=== PATIENT | female | born 1975 | race Caucasian/White ===

== ENCOUNTER 2017-02-23 14:54 | Emergency (ER) | payer SELFPAY ==
[2017-02-23] MEDS ORDERED: THIAMINE 100 MG/ML 100 MG/ML SOL IV ONE (15:34)
[2017-02-23] MEDS ORDERED: MAGNESIUM SULFATE 1 GM/2 ML SOL IV ONE (15:40)
[2017-02-23] MEDS ORDERED: SODIUM CHLORIDE 0.9% 1000ML 1,000 ML IV SCH (15:45)
[2017-02-23 15:52] LABS: BASOPHILS % (AUTO) 1 % (0-3); EOSINOPHILS % (AUTO) 1 % (0-9); HEMATOCRIT 42 % (35-47); MEAN CORPUSCULAR HGB CONC 36.4 gm/dl (32.0-36.0); MEAN CORPUSCULAR VOLUME 94 fL (81-99); MONOCYTES % (AUTO) 6.8 % (0-12); NEUTROPHILS % (AUTO) 76.3 % (37-80)
[2017-02-23] MEDS ORDERED: FOLIC ACID 1 MG TAB PO ONE (15:52)
[2017-02-23] MEDS ORDERED: MAGNESIUM SULFATE 5 GM/10 ML SOL ONE (15:53)
[2017-02-23] MEDS ORDERED: THIAMINE 100 MG/ML 100 MG/ML SOL ONE (15:53)
[2017-02-23] MEDS ORDERED: FOLIC ACID 1 MG TAB ONE (15:53)
[2017-02-23 16:08] LABS: NORMAL RBCS NORMAL RBCS
[2017-02-23 16:10] LABS: ALBUMIN 3.6 gm/dl (3.4-5.0); ALT 32 IU/L (14-63); CALCIUM 8.3 mg/dl (8.5-10.1); GLOM FILT RATE 72 mL/min (>60); POTASSIUM 3.5 mMol/L (3.5-5.1); SODIUM 135 mMol/L (136-145)
[2017-02-23] MEDS: SODIUM CHLORIDE 0.9% FLUSH 10 ML SOL IV PRN ×2 (16:20→16:35)
[2017-02-23 17:01] VITALS: TEMP 98.9
[2017-02-23] MEDS ORDERED: POTASSIUM CHLORIDE 10 MEQ TER PO ONE (17:07)
[2017-02-23] MEDS ORDERED: POTASSIUM CHLORIDE 10 MEQ TER ONE (17:07)
[2017-02-23 18:22] VITALS: RESP 16
[2017-02-23 18:23] VITALS: BP 113/69; PULSE 81; O2SAT 97
== END 2017-02-23 18:46 | disposition home or self-care (01) | DRG 935 ==
LOC: ED 14:54
DX: T22.232A Burn of second degree of left upper arm, initial encounter (principal); T31.0 Burns involving less than 10% of body surface; X08.8XXA Exposure to other specified smoke, fire and flames, initial encounter; F10.129 Alcohol abuse with intoxication, unspecified
CPT/HCPCS: 36415; 80053; 84484; 85025; 93005; 96365; 96366; 96374; 96375; 99284; 99285; J3475; A6232